=== PATIENT | female | born 1970 | race Caucasian/White ===

== ENCOUNTER 2022-01-11 14:42 | Emergency (ER) | payer OTHER ==
--- NOTE | 2022-01-11 15:23 | ER ---
Nurse's Notes [facility] Name: Maggy Baires Age: 52 yrs Sex: Female : 1970 Arrival Date: 01/11/2022 Time: 14:44 Bed 18 Private MD: Nikky Bradford Diagnosis: Hymenoptera Envenomation Presentation: 01/11 15:02 Chief complaint: Patient states: was mowing the grass and was stung by 'numerous' bees; vg1 LEVI legs/arms, ABD, back and face. Denies difficulty breathing or NV. Coronavirus screen: Vaccine status: Patient reports receiving the 2nd dose of the covid vaccine. Client denies travel out of the [place] in the last 14 days. Ebola Screen: Patient denies exposure to infectious person. Patient denies travel to an Ebola-affected area in the 21 days before illness onset. Onset: The symptoms/episode began/occurred today. Anaphylaxis evaluation, no signs or symptoms of anaphylaxis were noted. Initial Sepsis Screen: Does the patient meet any 2 criteria? No. Patient's initial sepsis screen is negative. Does the patient have a suspected source of infection? No. Patient's initial sepsis screen is negative. Risk Assessment: Do you want to hurt yourself or someone else? Patient reports no desire to harm self or others. Onset of symptoms was January 11, 2022. 15:02 Method Of Arrival: Ambulatory vg1 15:02 Acuity: DEE 3 vg1 Triage Assessment: 15:04 General: Appears uncomfortable, Behavior is calm, cooperative. Pain: Complains of pain vg1 in face, abdomen, right arm, left arm, right leg and left leg Pain currently is 6 out of 10 on a pain scale. Respiratory: Airway is patent Respiratory effort is even, unlabored. 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 - Social history:: Smoking status: Patient denies any tobacco usage or history of. Screenin:14 Abuse screen: Denies threats or abuse. Nutritional screening: No deficits noted. tw2 Tuberculosis screening: No symptoms or risk factors identified. Fall Risk None identified. Assessment: 15:14 Reassessment: provider at bedside at this time. tw2 15:42 Reassessment: Patient appears in no apparent distress at this time. No changes from tw2 previously documented assessment. Patient and/or family updated on plan of care and expected duration. Pain level reassessed. Patient is alert, oriented x 3, equal unlabored respirations, skin warm/dry/pink. 15:43 Respiratory: na. tw2 Vital Signs: 15:02 BP 147 / 86; Pulse 90; Resp 16; Temp 99.0(TE); Pulse Ox 97% on R/A; Weight 92.08 kg; vg1 Height 5 ft. 10 in. (177.80 cm); Pain 5/10; 15:02 Body Mass Index 29.13 (92.08 kg, 177.80 cm) vg1 ED Course: 14:44 Patient arrived in ED. mr 14:45 Nikky Bradford is Private Physician. mr 14:45 [facility] [place] 14:45 Karey Norris is Attending Physician. [place] 15:04 Triage completed. vg1 15:04 Arm band placed on. vg1 15:07 Bed in low position. Call light in reach. Pulse ox on. NIBP on. tw2 15:14 Kareen Castro, RN is Primary Nurse. tw2 15:42 No provider procedures requiring assistance completed. Patient did not have IV access tw2 during this emergency room visit. Administered Medications: 15:26 Drug: Decadron (dexamethasone) 10 mg Route: IM; Site: right deltoid; tw2 15:42 Follow up: Response: No adverse reaction tw2 Medication: 15:15 VIS not applicable for this client. tw2 Outcome: 15:22 Discharge ordered by . [place] 15:42 Discharged to home ambulatory. tw2 15:42 Condition: stable 15:42 Discharge instructions given to patient, Instructed on discharge instructions, follow up and referral plans. medication usage, Demonstrated understanding of instructions, follow-up care, medications, Prescriptions given X 2. 15:43 Patient left the ED. tw2 Signatures: Paulo Pool PA PA jmm Rivera, Gia mr Kareen Castro, RN RN tw2 Kourtney Martínez RN RN vg1
--- NOTE | 2022-01-11 15:23 | EDPHYS ---
Physician Documentation [facility] Name: Maggy Baires Age: 52 yrs Sex: Female : 1970 Arrival Date: 01/11/2022 Time: 14:44 Bed 18 Private MD: Nikky Bradford ED Physician Karey Norris HPI: 01/11 15:18 This 52 yrs old Female presents to ER via Ambulatory with complaints of Bee Sting. jmm 15:18 Onset: The symptoms/episode began/occurred acutely, just prior to arrival. This is a 52 jmm year old female with a history of anxiety that presents to [facility] ED with with multiple bee stings and concerns a bee may be in her ear. Patient states she disturbed a bee nest while mowing her lawn Denies shortness of breath, vomiting, swelling sensation to her throat. . 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 - Social history:: Smoking status: Patient denies any tobacco usage or history of. ROS: 15:18 Constitutional: Negative for fever, chills, and weight loss, Cardiovascular: Negative jmm for chest pain, palpitations, and edema, Respiratory: Negative for shortness of breath, cough, wheezing, and pleuritic chest pain. 15:18 Skin: Positive for erythema. 15:18 All other systems are negative. Exam: 15:18 Constitutional: This is a well developed, well nourished patient who is awake, alert, jmm and in no acute distress. Head/Face: atraumatic. Eyes: EOMI, no conjunctival erythema appreciated ENT: Moist Mucus Membranes Neck: Trachea midline, Supple Chest/axilla: Normal chest wall appearance and motion. Cardiovascular: Regular rate and rhythm. No edema appreciated Respiratory: Normal respirations, no respiratory distress appreciated Abdomen/GI: Non distended Back: Normal ROM 15:18 Skin: erythema noted to the face, neck. . 15:18 Neuro: Orientation: is normal, Mentation: is normal, Memory: is normal. 15:18 Psych: Behavior/mood is pleasant, cooperative. Vital Signs: 15:02 BP 147 / 86; Pulse 90; Resp 16; Temp 99.0(TE); Pulse Ox 97% on R/A; Weight 92.08 kg; vg1 Height 5 ft. 10 in. (177.80 cm); Pain 5/10; 15:02 Body Mass Index 29.13 (92.08 kg, 177.80 cm) vg1 MDM: 15:17 Patient medically screened. [facility] 15:20 Data reviewed: vital signs, nurses notes. Counseling: I had a detailed discussion with [facility] the patient and/or guardian regarding: the historical points, exam findings, and any diagnostic results supporting the discharge/admit diagnosis, the need for outpatient follow up, to return to the emergency department if symptoms worsen or persist or if there are any questions or concerns that arise at home. ED course: Patient is alert and non toxic in appearance in the ED. No signs of resp distress. No pharyngeal edema appreciated. . Administered Medications: 15:26 Drug: Decadron (dexamethasone) 10 mg Route: IM; Site: right deltoid; tw2 15:42 Follow up: Response: No adverse reaction tw2 Disposition: 01/12 07:45 STAFF ATTESTATION STATEMENT I was immediately available on-site in the Emergency sd2 Department for consultation in the care of the patient. Karey Norris MD. Disposition Summary: 01/11/22 15:22 Discharge Ordered Location: Home [facility] Condition: Stable [facility] Diagnosis - Hymenoptera Envenomation [facility] Followup: [facility] - With: Private Physician - When: 2 - 3 days - Reason: Recheck today's complaints, Continuance of care, Re-evaluation by your physician Discharge Instructions: - Discharge Summary Sheet [facility] - Bee, Wasp, or Hornet Sting, Adult [facility] Forms: - Medication Reconciliation Form [facility] - Thank You Letter [facility] - Antibiotic Education [facility] - Prescription Opioid Use [facility] Prescriptions: - Doxycycline Hyclate 100 mg Oral Tablet - take 1 tablet by ORAL route every 12 hours; 20 tablet; Refills: 0, Product [facility] Selection Permitted - Medrol (Joaquin) 4 mg Oral Tablets, Dose Pack - take 1 tablet by ORAL route as directed - follow package instructions; 1 jesse packet; Refills: 0, Product Selection Permitted Signatures: Paulo Pool PA PA jmm Wise, Tara, RN RN tw2 Kourtney Martínez RN RN vg1 Karey Norris2
[2022-01-11] MEDS ORDERED: dexAMETHasone 10 MG/ML VIAL ONE (15:30)
[2022-01-11 16:01] VITALS: BP 147/86; TEMP 99; O2SAT 97
== END 2022-01-11 15:43 | disposition home or self-care (01) ==
LOC: ER 14:42
DX: T63.441A Toxic effect of venom of bees, accidental (unintentional), initial encounter (principal); F41.9 Anxiety disorder, unspecified; F32.A Depression, unspecified; Z88.5 Allergy status to narcotic agent
CPT/HCPCS: 96372; 99283; J1100

== ENCOUNTER 2024-08-26 12:39 | Inpatient (IN) | payer OTHER ==
--- NOTE | 2024-08-26 13:32 | RAD REPORT ---
EXAM: Chest Single View HISTORY: 54 years Female CHEST PAIN COMPARISON: None. FINDINGS: LUNGS/PLEURA: The lungs are clear. No pleural effusions or pneumothorax. No pulmonary edema. CARDIAC/MEDIASTINUM: The cardiac silhouette is within normal limits. UPPER ABDOMEN: No significant abnormality. BONES: No acute abnormality. LINES/TUBES/OTHER: N/A IMPRESSION: No evidence of acute cardiopulmonary disease.
[2024-08-26] MEDS ORDERED: ASPIRIN 81 MG CHEWABLE TABLET ONE (15:01)
[2024-08-26 15:50] LABS: ALT/SGPT 29 U/L (13-56); AST/SGOT 16 U/L (15-37); Albumin 3.6 g/dL (3.4-5.0); Albumin/Globulin Ratio 1.1 (1.1-1.8); Alkaline Phosphatase 78 U/L (45-117); Anion Gap 9.6 mEq/L (5.0-15.0); BUN Blood Urea Nitrogen 11 mg/dL (7-18); Bicarbonate 28 mEq/L (21-32); Bilirubin Total 0.4 mg/dL (0.2-1.0); Globulin 3.3 g/dL (2.3-3.5); Glomerular Filtration Rate 95 ml/min (=/>90); Glucose Level 111 mg/dL (74-106); NT PRO-BNP 85 pg/mL (<125); Potassium 3.6 mEq/L (3.5-5.1); Protein, Total 6.9 g/dL (6.4-8.2); Sodium Level 140 mEq/L (136-145)
[2024-08-26 15:51] LABS: Bilirubin Direct < 0.2 mg/dL (0-0.2); Bilirubin Indirect, Calculated 0.2 mg/dL (0.2-0.8); Troponin High Sensitivity < 3.0 pg/mL (<58.9)
--- NOTE | 2024-08-26 16:02 | EDPHYS ---
Physician Documentation 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 Flu vaccine is not up to date. - Infectious Disease History:: Denies. - Social history:: Smoking status: Patient denies any tobacco usage or history of. Vital Signs: 12:57 BP 117 / 74; Pulse 80; Resp 17; Temp 98.5; Pulse Ox 97% on R/A; Weight 106.59 kg; ap3 Height 2 ft. 10 in. ; Pain 6/10; 15:00 BP 116 / 68; Pulse 69; Resp 18; Pulse Ox 97% ; me1 16:00 BP 112 / 64; Pulse 71; Resp 17; Pulse Ox 97% ; me1 17:00 BP 114 / 71; Pulse 62; Resp 16; Pulse Ox 99% ; me1 18:00 BP 118 / 70; Pulse 64; Resp 16; Pulse Ox 98% ; me1 03 03:00 BP 111 / 64; Pulse 64; Resp 18; Pulse Ox 99% on 1 lpm NC; ay 03:57 BP 105 / 59; Pulse 71; Resp 19; Pulse Ox 99% on 1 lpm NC; ay 08/26 12:57 Body Mass Index 142.93 (106.59 kg, 86.36 cm) ap3 03 12:57 Pain Scale: Adult ap3 MDM: 08/26 13:01 Medical Screening Exam initiated [facility] 08/26 13:02 Order name: Basic Metabolic Panel; Complete Time: 16:00 1 08/26 13:02 Order name: CBC with Diff; Complete Time: 16:20 gb1 08/26 13:02 Order name: LFT's; Complete Time: 16:00 [facility] 08/26 13:02 Order name: NT PRO-BNP; Complete Time: 16:00 gb1 08/26 13:02 Order name: PT-INR; Complete Time: 16:20 gb1 08/26 13:02 Order name: Troponin HS; Complete Time: 16:00 gb1 08/26 22:00 Order name: Lipid Profile EDMS 08/26 22:00 Order name: Lipid Profile EDMS 08/26 22:00 Order name: Troponin High Sensitivity EDMS 08/26 22:00 Order name: Troponin High Sensitivity EDMS 08/26 22:00 Order name: Troponin High Sensitivity EDMS 08/26 22:00 Order name: Troponin High Sensitivity EDMS 08/26 22:00 Order name: Troponin High Sensitivity EDMS 08/26 22:03 Order name: NT PRO-BNP EDMS 08/26 13:02 Order name: XRAY Chest (1 view); Complete Time: 13:33 gb1 08/26 22:00 Order name: Echo with Doppler EDMS 08/26 13:02 Order name: EKG; Complete Time: 13:02 gb1 08/26 22:00 Order name: CONS Physician Consult EDMS 08/26 22:00 Order name: EKG Electrocardiogram EDMS 08/26 22:00 Order name: EKG Electrocardiogram EDMS 08/26 22:00 Order name: EKG Electrocardiogram EDMS 08/26 13:02 Order name: Cardiac monitoring; Complete Time: 03:23 gb1 08/26 13:02 Order name: EKG - Nurse/Tech; Complete Time: 13:13 gb1 08/26 13:02 Order name: IV Saline Lock; Complete Time: 15:27 gb1 08/26 13:02 Order name: Labs collected and sent; Complete Time: 15:03 gb1 08/26 13:02 Order name: O2 Per Protocol; Complete Time: 15:00 gb1 08/26 13:02 Order name: O2 Sat Monitoring; Complete Time: 15:00 gb1 08/26 15:42 Order name: Labs - recollect needed: green and blue; Complete Time: 16:07 bc6 Administered Medications: 15:03 Drug: Aspirin PO Chewable Tablet 324 mg PO once; 81 mg tablets x 4 Route: PO; me1 15:16 Follow up: Response: No adverse reaction me1 08/27 02:40 Drug: NS 0.9% IV 1000 ml IV at 1000 ml once; to be given as a bolus over 60 minutes ay Route: IV; Rate: 1000 ml; Site: left hand; 04:29 Follow up: IV Status: Completed infusion ay Disposition Summary: 08/26/24 16:02 Hospitalization Ordered Notes: Hospitalization Status: Inpatient Admission gb1 Location: Telemetry/MedSur (Inpatient) gb1 Condition: Stable gb1 Problem: an acute exacerbation gb1 Symptoms: have improved gb1 Bed/Room Type: Standard gb1 Provider: June Villa(08/26/24 16:21) gb1 Room Assignment: [facility](08/26/24 22:43) vk Diagnosis - Chest pain, unspecified gb1 Forms: - Medication Reconciliation Form gb1 - SBAR form gb1 - Leadership Thank You Letter gb1 Signatures: Dispatcher [employer] Veronica Gomez, RN RN ap3 Rita Srivastava bc6 Deonna Bear RN RN me1 Ashlie Clement MD MD gb1 Sharon Mayes Awudu, RN RN ay Corrections: (The following items were deleted from the chart) 08/26 16:21 16:02 Dileep Ruiz gb1 gb1 22:43 16:02 gb1 vk
--- NOTE | 2024-08-26 16:02 | ER ---
Nurse's Notes [facility] Name: Maggy Baires Age: 54 yrs Sex: Female : 1970 Arrival Date: 08/26/2024 Time: 12:39 Bed 17 Private MD: Diagnosis: Chest pain, unspecified Presentation: 08/26 12:57 Chief complaint: Patient states: she has been having chest pain since approx 0800 this ap3 morning. 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 patient currently rates her pain as a 6/10 on the pain scale. Coronavirus screen: At this time, the client does not indicate any symptoms associated with coronavirus-19. Ebola Screen: No symptoms or risks identified at this time. Initial Sepsis Screen: Does the patient meet any 2 criteria? No. Patient's initial sepsis screen is negative. Does the patient have a suspected source of infection? No. Patient's initial sepsis screen is negative. Risk Assessment: Do you want to hurt yourself or someone else? Patient reports no desire to harm self or others. Onset of symptoms was August 26, 2024 at 08:00. 12:57 Method Of Arrival: Ambulatory ap3 12:57 Acuity: DEE 2 ap3 Triage Assessment: 12:59 General: Appears in no apparent distress. Behavior is calm, cooperative, appropriate ap3 for age. Pain: Complains of pain in chest Pain currently is 6 out of 10 on a pain scale. Neuro: Level of Consciousness is awake, alert, obeys commands, Oriented to person, place, time, situation, Appropriate for age. Cardiovascular: Reports chest pain. Respiratory: Airway is patent Respiratory effort is even, unlabored, Respiratory pattern is regular, symmetrical. 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 Flu vaccine is not up to date. - Infectious Disease History:: Denies. - Social history:: Smoking status: Patient denies any tobacco usage or history of. Screenin:59 [facility] ED Fall Risk Assessment (Adult) History of falling in the last 3 months, ap3 including since admission No falls in past 3 months (0 pts) Confusion or Disorientation No (0 pts) Intoxicated or Sedated No (0 pts) Impaired Gait No (0 pts) Mobility Assist Device Used No (0 pt) Altered Elimination No (0 pt) Score/Fall Risk Level 0 - 2 = Low Risk Oriented to surroundings, Maintained a safe environment, Educated pt \T\ family on fall prevention, incl call for assistance when getting out of bed, Assessed \T\ reinforced patient's understanding of fall precautions, Hourly rounding (assess needs \T\ fall precautionary measures) done, Used ambulatory aids as needed (educated on \T\ assisted with). Abuse screen: Denies threats or abuse. Nutritional screening: No deficits noted. Tuberculosis screening: No symptoms or risk factors identified. Assessment: 15:13 General: Appears in no apparent distress. uncomfortable, well groomed, well developed, me1 well nourished, Behavior is calm, cooperative, appropriate for age, Reports she has been having chest pain since approx 0800 this morning. 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 patient currently rates her pain as a 6/10 on the pain scale. Pain: Complains of pain in chest Pain radiates to left arm Pain currently is 6 out of 10 on a pain scale. Quality of pain is described as sharp, Pain began suddenly, Is continuous. Neuro: Level of Consciousness is awake, alert, obeys commands, Oriented to person, place, time, situation, Appropriate for age. Cardiovascular: Patient's skin is warm and dry. Respiratory: Airway is patent Respiratory effort is even, unlabored, Respiratory pattern is regular, symmetrical. GI: No signs and/or symptoms were reported involving the gastrointestinal system. : No signs and/or symptoms were reported regarding the genitourinary system. EENT: No signs and/or symptoms were reported regarding the EENT system. Derm: Skin is intact, is healthy with good turgor, Skin is pink, warm \T\ dry. Musculoskeletal: No signs and/or symptoms reported regarding the musculoskeletal system. 08/27 00:20 General: Appears in no apparent distress. uncomfortable, Behavior is calm, cooperative. ay Pain: Complains of pain in left arm and chest Pain currently is 6 out of 10 on a pain scale. Neuro: Level of Consciousness is awake, alert, obeys commands, Oriented to person, place, time, situation. Cardiovascular: Capillary refill < 3 seconds Rhythm is sinus rhythm. Respiratory: Airway is patent Respiratory effort is even, unlabored, Respiratory pattern is regular, symmetrical. GI: Patient currently denies nausea. : No signs and/or symptoms were reported regarding the genitourinary system. Vital Signs: 08/26 12:57 BP 117 / 74; Pulse 80; Resp 17; Temp 98.5; Pulse Ox 97% on R/A; Weight 106.59 kg; ap3 Height 2 ft. 10 in. ; Pain 6/10; 15:00 BP 116 / 68; Pulse 69; Resp 18; Pulse Ox 97% ; me1 16:00 BP 112 / 64; Pulse 71; Resp 17; Pulse Ox 97% ; me1 17:00 BP 114 / 71; Pulse 62; Resp 16; Pulse Ox 99% ; me1 18:00 BP 118 / 70; Pulse 64; Resp 16; Pulse Ox 98% ; me1 08 03:00 BP 111 / 64; Pulse 64; Resp 18; Pulse Ox 99% on 1 lpm NC; ay 03:57 BP 105 / 59; Pulse 71; Resp 19; Pulse Ox 99% on 1 lpm NC; ay 08/26 12:57 Body Mass Index 142.93 (106.59 kg, 86.36 cm) ap3 03 12:57 Pain Scale: Adult ap3 ED Course: 08/26 12:41 Patient arrived in ED. mr 12:56 EKG done, by ED staff. ap3 12:58 Triage completed. ap3 12:59 Arm band placed on right wrist. ap3 13:00 Patient maintains SpO2 saturation greater than 95% on room air. ap3 13:01 Ashlie Clement MD is Attending Physician. gb1 13:26 XRAY Chest (1 view) In Process Unspecified. EDMS 14:33 Patient placed in an exam room, on a stretcher. ll1 14:59 Deonna Bear, RN is Primary Nurse. me1 15:13 No provider procedures requiring assistance completed. me1 15:13 Patient has correct armband on for positive identification. Bed in low position. Call me1 light in reach. Side rails up X 1. Provided Education on: POC. Verbalized understanding.. Client placed on continuous cardiac and pulse oximetry monitoring. NIBP monitoring applied. town marshal on. Pulse ox on. NIBP on. 15:18 Missed attempt(s): 22 gauge in right forearm. em1 15:18 Missed attempt(s): 22 gauge in right forearm. Bleeding controlled, band aid applied, em1 catheter tip intact. 15:26 Initial lab(s) drawn, by me, sent to lab. Inserted saline lock: 20 gauge in left wrist, zm using aseptic technique. Blood collected. Flushed with 10 mL NS. 15:27 Basic Metabolic Panel Sent. zm 15:27 CBC with Diff Sent. zm 15:27 LFT's Sent. zm 15:27 NT PRO-BNP Sent. zm 15:27 PT-INR Sent. zm 15:27 Troponin HS Sent. 16:01 Dileep Ruiz is Hospitalizing Provider. 1 16:21 Hospitalizing Provider role handed off by Dileep Ruiz [facility] 16:21 June Villa MD is Hospitalizing Provider. [facility] 08/27 04:30 Patient admitted, IV remains in place. ay Administered Medications: 08/26 15:03 Drug: Aspirin PO Chewable Tablet 324 mg PO once; 81 mg tablets x 4 Route: PO; me1 15:16 Follow up: Response: No adverse reaction nc1 08/27 02:40 Drug: NS 0.9% IV 1000 ml IV at 1000 ml once; to be given as a bolus over 60 minutes ay Route: IV; Rate: 1000 ml; Site: left hand; 04:29 Follow up: IV Status: Completed infusion ay Medication: 08/26 15:13 VIS not applicable for this client. me1 Outcome: 16:02 Decision to Hospitalize by Provider. 1 08/27 04:30 Admitted to Med/surg accompanied by nurse, chas Condition: stable Instructed on the need for admit, 04:30 Patient left the ED. ay Signatures: Dispatcher [employer] EDTX AdyGia, Joshua Lewis Amanuel Wade em1 Veronica Jaime RN RN [id number] Silvano Quintero RN RN ll1 Svetlana Jeter Michelle, RN RN me1 Ashlie Clement MD MD gb1 Keshia Kaur RN RN ay Corrections: (The following items were deleted from the chart) 08/26 15:10 12:57 Chief complaint: Patient states: she has been having chest pain since approx 0800 me1 this morning. 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 patient currently rates her pain as a 6/10 on the pain scale ap3
[2024-08-26 16:13] LABS: Absolute Basophils 0.1 K/uL (0-0.5); Absolute Eosinophils 0.2 K/uL (0-0.5); Absolute Lymphocytes (CBC) 2.9 K/uL (0.7-4.9); Absolute Monocytes 0.3 K/uL (0.1-1.3); Absolute Neutrophil 3.7 K/uL (1.8-8.0); Basophils % 1.1 % (0-1.3); Hematocrit 37.1 % (36.0-45.0); Hemoglobin 12.7 g/dL (12.0-15.0); MCH 30.6 pg (27.0-35.0); MCHC 34.4 g/dL (32.0-36.0); MCV 89.1 fL (80-100); MPV 7.3 fL (7.6-11.3); Monocytes % 4.6 % (3.3-12.3); Neutrophils % 51.3 % (41.7-73.7); Nucleated Red Blood Cells % 0.2 % (0-0); Platelets 124 thou/uL (152-406); RBC Red Blood Cell Count 4.16 M/uL (3.86-4.86); Red Cell Distribution Width 13.3 % (12.1-15.2)
[2024-08-26 16:18] LABS: PT Prothrombin Time 10.5 SECONDS (10.0-13.0); Protime INR 0.92
[2024-08-26] MEDS ORDERED: MORPHINE 4 MG/ML SYR IV PRN (21:54)
--- NOTE | 2024-08-26 22:04 | P.HP ---
Patient History Date of Service: 08/27/24 History of Present Illness: 54-year-old female with a past medical history of obesity, hyperlipidemia, hypertension, borderline diabetes presenting with chest pain. She states she has gained about 45 pounds over the last few months. In addition she has had increasing shortness of breath. Furthermore she endorses radiation to the arm and left shoulder. She states her mother had a heart attack in her 60s. Her father had a stroke. She denies tobacco use, alcohol use, or any illicit drug use. Allergies codeine [Codeine] Adverse Reaction (Verified 08/11/12 12:46) Nausea/Vomiting Review of Systems General: Unremarkable Eyes: Unremarkable ENT: Unremarkable Respiratory: SOB with Excertion Cardiovascular: Chest Pain Gastrointestinal: Unremarkable Genitourinary: Unremarkable Musculoskeletal: Unremarkable Integumentary: Unremarkable Neurological: Unremarkable Lymphatics: Unremarkable Physical Examination - Physical Exam General: Alert, Obese HEENT: Normocephalic Respiratory: Clear to auscultation bilaterally, Normal air movement Cardiovascular: No edema, Normal pulses Capillary refill: <2 Seconds Gastrointestinal: Normal bowel sounds Musculoskeletal: No clubbing Integumentary: No rashes Neurological: Normal speech Lymphatics: No axilla or inguinal lymphadenopathy - Studies Laboratory Data (last 24 hrs) 08/26/24 08/26/24 08/26/24 15:55 15:55 15:20 WBC 7.20 Hgb 12.7 Hct 37.1 Plt Count 124 L PT 10.5 INR 0.92 Sodium 140 Potassium 3.6 BUN 11 Creatinine 0.75 Glucose 111 H Total Bilirubin 0.4 AST 16 ALT 29 Alkaline Phosphatase 78 Assessment and Plan - Plan Chest pain Shortness of breath Obesity Hyperlipidemia Prediabetes Essential hypertension Thrombocytopenia Trend troponin, EKG reviewed, echo pending Received aspirin in the ED, start statin, consult cardiology Lipid panel pending Resume home meds once obtained by pharmacy Chest x-ray without acute abnormality As needed nitroglycerin, morphine as needed DVT prophylaxis with SCDs - Advance Directives Does patient have a Living Will: No Does patient have a Durable POA for Healthcare: No
[2024-08-26] MEDS: Ringers Lactate 500 ML IV ONE (23:09)
[2024-08-27] MEDS: Ringers Lactate 500 ML IV ONE (00:10)
[2024-08-27] MEDS ORDERED: NA CHLORIDE 0.9% 1,000 ML ONE (02:10)
--- NOTE | 2024-08-27 02:30 | P.PN ---
Date of Service: 08/27/24 Called by nursing staff for low blood pressure Give 1 L lactated Ringer's Monitor pressure
[2024-08-27] MEDS: ENOXAPARIN 40 MG/0.4 ML SQ SCH (08:08)
[2024-08-27] MEDS: ASPIRIN EC 81 MG TAB PO SCH (08:08)
[2024-08-27] MEDS ORDERED: ATORVASTATIN 40 MG TAB PO SCH (09:00)
[2024-08-27] MEDS: LEVOTHYROXINE SOD 0.088 MG TAB PO SCH (09:00)
[2024-08-27] MEDS: ALPRAZOLAM 1 MG PO SCH (09:00)
[2024-08-27] MEDS: HOME MED 1 EA UNK (Quetiapine Fumarate [Seroquel] 300 MG Tablet) PO SCH (09:00)
[2024-08-27] MEDS: DOCUSATE NA 100 MG CAP PO SCH (09:16)
[2024-08-27] MEDS: MAGNESIUM HYDROXIDE 8% 30 ML PO ONE (09:16)
[2024-08-27 13:31] VITALS: BMI 33.5
[2024-08-27] MEDS: PNEUMOCOCCAL VACCINE 0.5 ML IMVAC ONE (13:41)
[2024-08-27] MEDS: FLU (Fluarix Triv) TS24-25(6MOS UP)/PF 45 MCG/0.5 ML Syringe IM ONE (13:43)
--- NOTE | 2024-08-27 13:56 | P.PN ---
Subjective Date of Service: 08/27/24 Patient reports intermittent left-sided chest pain. She states she has been wearing a heart monitor over the past couple of weeks and she was sent to the ER by Dr. Rao for evaluation for her chest pain. She reports associated shortness of breath, denies any palpitation. Physical Examination - Vital Signs Temperature: 97.9 F Blood Pressure: 113/60 Pulse: 68 Respirations: 12 Pulse Ox (%): 95 - Studies Laboratory Data (last 24 hrs) 08/26/24 08/26/24 08/26/24 15:55 15:55 15:20 WBC 7.20 Hgb 12.7 Hct 37.1 Plt Count 124 L PT 10.5 INR 0.92 Sodium 140 Potassium 3.6 BUN 11 Creatinine 0.75 Glucose 111 H Total Bilirubin 0.4 AST 16 ALT 29 Alkaline Phosphatase 78 Assessment And Plan - Plan Physical examination General: Alert and oriented x3, NAD, HEENT: Conjunctiva not pale, anicteric sclera Neck: Supple, no elevated JVD Heart: Heart sounds 1 and 2 normal, regular rhythm, normal rate, no pedal edema Lungs: Clear to auscultation bilaterally, adequate breath sounds bilaterally, no rhonchi or crackles. Abdomen: Soft, nondistended, nontender, normal bowel sounds. Extremities: No tenderness, no deformity Skin: Normal skin turgor, no rash, no nodules or ulcers. Neuro: No focal motor deficit. Normal speech. Psychiatry: Normal mood, no agitation. Diagnosis Chest pain Obesity Hyperlipidemia Prediabetes Essential hypertension Thrombocytopenia Plan Chest pain Troponin trended negative. ACS ruled out. Aspirin, Lipitor Cardiology consulted, Dr. Rao to evaluate patient. Echocardiogram ordered. Continue telemetry. Prediabetes Obesity ADA diet. Hypothyroidism Continue home dose Synthroid. Hypotension Hold home antihypertensives. Patient given IV Ringer's lactate bolus. Monitor BP. Thrombocytopenia Unknown etiology. Monitor CBC. Continue aspirin for now. DVT prophylaxis: Lovenox Advanced directive: Full code
[2024-08-27] MEDS: ATORVASTATIN 40 MG TAB PO SCH (21:00)
[2024-08-27] MEDS: NITROGLYCERIN 0.4 MG/TAB SL PRN (22:49)
[2024-08-27] MEDS: ACETAMINOPHEN 325 MG TABLET PO PRN (23:05)
[2024-08-28 05:53] LABS: Absolute Eosinophils 0.2 K/uL (0-0.5); Absolute Lymphocytes (CBC) 2.1 K/uL (0.7-4.9); Absolute Monocytes 0.4 K/uL (0.1-1.3); Absolute Neutrophil 4.7 K/uL (1.8-8.0); Basophils % 0.4 % (0-1.3); Eosinophils % 2.9 % (0-4.4); Hematocrit 35.2 % (36.0-45.0); Hemoglobin 11.8 g/dL (12.0-15.0); MCH 30.3 pg (27.0-35.0); MCHC 33.6 g/dL (32.0-36.0); MCV 89.9 fL (80-100); MPV 6.8 fL (7.6-11.3); Monocytes % 5.5 % (3.3-12.3); Neutrophils % 63.2 % (41.7-73.7); Platelets 212 thou/uL (152-406); RBC Red Blood Cell Count 3.92 M/uL (3.86-4.86); Red Cell Distribution Width 13.2 % (12.1-15.2)
[2024-08-28] MEDS ORDERED: ALPRAZOLAM 1 MG TABLET PO PRN (10:03)
--- NOTE | 2024-08-28 14:59 | P.PN ---
Subjective Date of Service: 08/28/24 Patient reports mild lingering left-sided chest pain. Physical Examination - Vital Signs Temperature: 97.8 F Blood Pressure: 111/57 Pulse: 69 Respirations: 16 Pulse Ox (%): 96 Assessment And Plan - Plan Physical examination General: Alert and oriented x3, NAD, HEENT: Conjunctiva not pale, anicteric sclera Neck: Supple, no elevated JVD Heart: Heart sounds 1 and 2 normal, regular rhythm, normal rate, no pedal edema Lungs: Clear to auscultation bilaterally, adequate breath sounds bilaterally, no rhonchi or crackles. Abdomen: Soft, nondistended, nontender, normal bowel sounds. Extremities: No tenderness, no deformity Skin: Normal skin turgor, no rash, no nodules or ulcers. Neuro: No focal motor deficit. Normal speech. Psychiatry: Normal mood, no agitation. Diagnosis Chest pain Obesity Hyperlipidemia Prediabetes Essential hypertension Thrombocytopenia Plan Chest pain Troponin trended negative. ACS ruled out. Aspirin, Lipitor Cardiology consulted, Dr. Rao to evaluate patient. Echocardiogram ordered. Continue telemetry. Prediabetes Obesity ADA diet. Hypothyroidism Continue home dose Synthroid. Hypotension Hold home antihypertensives. Patient given IV Ringer's lactate bolus. Monitor BP. Thrombocytopenia Unknown etiology. Monitor CBC. Continue aspirin for now. 08/28 Patient with ongoing intermittent chest pain Troponin trended negative. Thrombocytopenia resolved. Continue aspirin and Lipitor Patient hydrated with IV Ringer's lactate for low BP readings. Echocardiogram is pending Cardiology to evaluate Continue telemetry. DVT prophylaxis: Lovenox Advanced directive: Full code
[2024-08-28] MEDS: QUETIAPINE 100MG TAB PO SCH (21:29)
[2024-08-28] MEDS: ALPRAZOLAM 1 MG TABLET PO ONE (21:40)
[2024-08-29 09:08] VITALS: O2SAT 95
[2024-08-29 09:12] VITALS: TEMP 97.6
[2024-08-29 12:32] VITALS: BP 136/81
--- NOTE | 2024-08-29 12:43 | P.CNS ---
Date of Consult: 08/29/24 Chief Complaint: chest pain History of Present Illness: Patient with PMH of HTN, HLD, presented with chest pain that has been going on for a while, got worse recently, sharp in nature, no radiation, reproducible on exam by palpation and percussion, denies other cardiac symptoms. Allergies codeine [Codeine] Adverse Reaction (Verified 08/11/12 12:46) Nausea/Vomiting Home medications list reviewed: Yes Home Medications: Alprazolam [Alprazolam ER] 1 mg PO TID 08/27/24 Atorvastatin Calcium [Lipitor] 40 mg PO DAILY 08/27/24 Levothyroxine [Synthroid*] 0.88 mg PO DAILY 08/27/24 Lisinopril/Hydrochlorothiazide [Lisinopril-Hctz 20-25 mg Tab] 20 - 25 mg PO DAILY 08/27/24 Quetiapine Fumarate [Seroquel] 300 mg PO DAILY 08/27/24 - Past Medical/Surgical History Diabetic: No - Social History Alcohol use: No CD- Drugs: No Caffeine use: No Place of Residence: Home Review of Systems 10-point ROS is otherwise unremarkable Physical Examination Temp Pulse Resp BP Pulse Ox 97.6 F 68 16 136/81 96 08/29/24 12:00 08/29/24 12:00 08/29/24 12:00 08/29/24 12:00 08/29/24 12:00 General: Alert, In no apparent distress HEENT: Atraumatic, PERRLA, Mucous membr. moist/pink, EOMI, Sclerae nonicteric Neck: Supple, 2+ carotid pulse no bruit, No LAD, Without JVD or thyroid abnormality Respiratory: Clear to auscultation bilaterally, Normal air movement Cardiovascular: Regular rate/rhythm, Normal S1 S2 Gastrointestinal: Normal bowel sounds, No tenderness Musculoskeletal: No tenderness Integumentary: No rashes Neurological: Normal gait, Normal speech, Normal tone, Normal affect Lymphatics: No axilla or inguinal lymphadenopathy - Problems (1) Chest pain Current Visit: Yes Status: Acute Plan: Non cardiac, EKG and cardiac enzymes are negative. agree with echo, if normal then outpatient follow up with cardiology for a stress test. continue ASA and lipitor
--- NOTE | 2024-08-29 13:26 | P.DS ---
Admission Date: 08/26/24 Discharge Date: 08/29/24 Disposition: ROUTINE DISCHARGE Discharge Condition: FAIR Reason for Admission: chest pain Brief History of Present Illness: 54-year-old female with a past medical history of obesity, hyperlipidemia, hypertension, borderline diabetes presenting with chest pain. She states she has gained about 45 pounds over the last few months. In addition she has had increasing shortness of breath. Furthermore she reported arm and left shoulder pain. She states her mother had a heart attack in her 60s. Her father had a stroke. She denies tobacco use, alcohol use, or any illicit drug use. Initial troponin negative, EKG did not show any acute changes. Patient was hospitalized for ACS rule out. Hospital Course: Diagnosis Chest pain Obesity Hyperlipidemia Prediabetes Essential hypertension Thrombocytopenia Patient admitted to the medical floor and the following medical problems addressed: Chest pain Troponin trended negative. ACS ruled out. Aspirin, Lipitor Cardiology consulted, patient evaluated by Dr. Rutherford who recommend outpatient stress test. ACS ruled out. Echocardiogram done was grossly normal with normal EF. Prediabetes Obesity ADA diet. Hypothyroidism Continued home dose Synthroid. Hypotension Hold home antihypertensives due to low BPs Patient given IV Ringer's lactate bolus. Thrombocytopenia Unknown etiology. Thrombocytopenia resolved No physical evidence of bleeding. Vital Signs/Physical Exam: Temp Pulse Resp BP Pulse Ox 97.6 F 68 16 136/81 96 08/29/24 12:00 08/29/24 12:00 08/29/24 12:00 08/29/24 12:00 08/29/24 12:00 General: Alert, In no apparent distress, Oriented x3 HEENT: Mucous membr. moist/pink, Sclerae nonicteric Neck: Supple, JVD not distended Respiratory: Clear to auscultation bilaterally, Normal air movement Cardiovascular: No edema, Regular rate/rhythm, Normal S1 S2 Gastrointestinal: Normal bowel sounds, Soft and benign, Non-distended Musculoskeletal: No swelling Integumentary: No rashes, No cyanosis Neurological: Normal strength at 5/5 x4 extr Laboratory Data at Discharge: WBC 7.50 thou/uL (4.3-10.9) 08/28/24 05:28 Hgb 11.8 g/dL (12.0-15.0) L 08/28/24 05:28 Hct 35.2 % (36.0-45.0) L 08/28/24 05:28 Plt Count 212 thou/uL (152-406) 08/28/24 05:28 PT 10.5 SECONDS (10.0-13.0) 08/26/24 15:55 INR 0.92 08/26/24 15:55 Sodium 140 mEq/L (136-145) 08/26/24 15:20 Potassium 3.6 mEq/L (3.5-5.1) 08/26/24 15:20 BUN 11 mg/dL (7-18) 08/26/24 15:20 Creatinine 0.75 mg/dL (0.55-1.02) 08/26/24 15:20 Glucose 111 mg/dL (74-106) H 08/26/24 15:20 Total Bilirubin 0.4 mg/dL (0.2-1.0) 08/26/24 15:20 AST 16 U/L (15-37) 08/26/24 15:20 ALT 29 U/L (13-56) 08/26/24 15:20 Alkaline Phosphatase 78 U/L (45-117) 08/26/24 15:20 Triglycerides 184 mg/dL (<150) H 08/27/24 02:35 Cholesterol 143 mg/dL (<200) 08/27/24 02:35 HDL Cholesterol 47 mg/dL (40-60) 08/27/24 02:35 Cholesterol/HDL Ratio 3.04 08/27/24 02:35 Home Medications: Alprazolam [Alprazolam ER] 1 mg PO TID 08/27/24 Atorvastatin Calcium [Lipitor] 40 mg PO DAILY 08/27/24 Levothyroxine [Synthroid*] 0.88 mg PO DAILY 08/27/24 Quetiapine Fumarate [Seroquel] 300 mg PO DAILY 08/27/24 Aspirin [Aspirin EC 81 MG] 81 mg PO DAILY #30 tab 08/29/24 New Medications: Aspirin [Aspirin EC 81 MG] 81 mg PO DAILY #30 tab Physician Discharge Instructions: PROBLEM: Chest pain GOAL: Clear understanding of disease process INSTRUCTIONS: Follow up with Dr Rao to arrange outpatient stress test and to get ECHO results Diet: AHA Activity: Ad mykel IMMUNIZATION Influenza Vaccine Indicated: No Influenza Vaccine Given: Date Given: Pneumonia Vaccine Indicated: No Pneumonia Vaccine Given: Yes Date Given: Your BP medications were held because your BP readings were low during the hospital stay. Please check your BP once in the morning and restart your antihypertensives if you are systolic blood pressure stays consistently above 140 for the next couple of days. Please follow-up with cardiology Dr. Rao/Dr. Rutherford for arrangement for outpatient stress test. Your echocardiogram result is pending and need to be followed by your PCP or Dr. Rutherford. Diet: AHA Activity: Ad mykel Followup: Stanley Figueroa MD [Primary Care Provider] - 1-2 Weeks Issa Rao MD [ACTIVE - CAN ADMIT] - 1 Week (stress test) Time spent managing pt's care (in minutes): 32
--- NOTE | 2024-08-29 13:44 | ECHO ---
HEIGHT: 5 ft 10 in WEIGHT: 234 lb 0 oz DATE OF STUDY: 08/29/[address]: Ollie Hernandez MD 2-DIMENSIONAL: YES M.MODE: YES DOPPLER: YES COLOR FLOW: YES TDS: PORTABLE: YES DEFINITY: BUBBLE STUDY: DIAGNOSIS: CHEST PAIN, CONCERN FOR NEW ONSET HEART FAILURE CARDIAC HISTORY: CATHERIZATION: NO SURGERY: NO PROSTHETIC VALVE: NO PACEMAKER: NO MEASUREMENTS (cm) DIASTOLIC (NORMALS) SYSTOLIC (NORMALS) IVSd 1.2 (0.6-1.2) LA Diam 2.7 (1.9-4.0) LVEF 55-60% LVIDd 5.0 (3.5-5.7) LVIDs 3.8 (2.0-3.5) %FS 25% LVPWd 1.2 (0.6-1.2) Ao Diam 2.7 (2.0-3.7) 2 DIMENSIONAL ASSESSMENT: RIGHT ATRIUM: NORMAL LEFT ATRIUM: NORMAL RIGHT VENTRICLE: NORMAL LEFT VENTRICLE: NORMAL TRICUSPID VALVE: NORMAL MITRAL VALVE: NORMAL PULMONIC VALVE: NORMAL AORTIC VALVE: NORMAL PERICARDIAL EFFUSION: NONE AORTIC ROOT: NORMAL LEFT VENTRICULAR WALL MOTION: NORMAL DOPPLER/COLOR FLOW: NORMAL COMMENTS: 1. NORMAL LEFT VENTRICULAR SYSTOLIC FUNCTION, EJECTION FRACTION 55-60%, NORMAL WALL MOTION 2. NORMAL DIASTOLIC FUNCTION TECHNOLOGIST: JOSE G CADET
--- NOTE | 2024-08-30 11:17 | EKG ---
Test Date: 2024-08-26 Test Time: 12:55:34 Strike Warfare/Missile Systems Officer: ALP MEASUREMENT RESULTS: Intervals: Rate: 76 VT: 196 QRSD: 92 QT: 390 QTc: 438 [place]: P: 63 VT: 196 QRS: 33 T: 22 INTERPRETIVE STATEMENTS: Normal sinus rhythm T wave abnormality, consider inferior ischemia Abnormal ECG No previous ECG available for comparison Electronically Signed On 08-30-24 11:04:27 CDT by Lawson Rutherford
== END 2024-08-29 15:02 | disposition home or self-care (01) | DRG 313 ==
LOC: ER 12:39 → ERHOLD 21:54 → 2ND 08-27 06:13
PROVIDERS: ADMIT Family Medicine; ATTEND Internal Medicine
DX: R07.9 Chest pain, unspecified (principal); Z68.45 Body mass index [BMI] 70 or greater, adult; E66.9 Obesity, unspecified; D69.6 Thrombocytopenia, unspecified; I95.9 Hypotension, unspecified; E03.9 Hypothyroidism, unspecified; E78.5 Hyperlipidemia, unspecified; I10 Essential (primary) hypertension; R73.03 Prediabetes; Z23 Encounter for immunization; Z88.5 Allergy status to narcotic agent; Z79.82 Long term (current) use of aspirin; Z90.49 Acquired absence of other specified parts of digestive tract; Z28.310 Unvaccinated for COVID-19; Z79.890 Hormone replacement therapy; Z79.899 Other long term (current) drug therapy; Z90.710 Acquired absence of both cervix and uterus
CPT/HCPCS: 36415; 71045; 80048; 80061; 80076; 83880; 84484; 85025; 85379; 85610; 90471; 90656; 90732; 93005; 93306; 94760; 96360; 96361; 99285; J1650; J7030; J7120

== ENCOUNTER 2024-10-27 12:25 | Day surgery (SDC) | payer OTHER ==
[2024-10-24 16:30] LABS: Absolute Eosinophils 0.2 K/uL (0-0.5); Absolute Monocytes 0.4 K/uL (0.1-1.3); Basophils % 0.4 % (0-1.3); Eosinophils % 3.9 % (0-4.4); Hematocrit 36.6 % (36.0-45.0); Hemoglobin 12.8 g/dL (12.0-15.0); Lymphocytes % 36.2 % (15.3-44.8); MCH 30.6 pg (27.0-35.0); MCV 87.5 fL (80-100); MPV 7.3 fL (7.6-11.3); Monocytes % 6.8 % (3.3-12.3); Neutrophils % 52.7 % (41.7-73.7); Nucleated Red Blood Cells % 0.1 % (0-0); Platelets 229 thou/uL (152-406); RBC Red Blood Cell Count 4.18 M/uL (3.86-4.86); Red Cell Distribution Width 13.1 % (12.1-15.2)
[2024-10-24 16:33] LABS: PT Prothrombin Time 9.9 SECONDS (10-13.0); PTT, Activated Partial Thromb 32.2 SECONDS (27.2-37.4); Protime INR 0.86
--- NOTE | 2024-10-27 11:52 | EKG ---
Test Date: 2024-10-24 Test Time: 15:29:48 Continuous Improvement Manager: SUMAN MEASUREMENT RESULTS: Intervals: Rate: 74 MN: 194 QRSD: 88 QT: 380 QTc: 421 [place]: P: 73 MN: 194 QRS: 35 T: 50 INTERPRETIVE STATEMENTS: Normal sinus rhythm Low voltage QRS Borderline ECG Compared to ECG 09/29/2024 14:45:05 No significant changes Electronically Signed On 10-27-24 11:46:01 CDT by Lawson Rutherford
[2024-10-27] MEDS ORDERED: NA CHLORIDE 0.9% 500 ML ONE (12:36)
[2024-10-27] MEDS ORDERED: FENTANYL CITR 100 MCG/2 ML IV ONE (14:26)
[2024-10-27] MEDS ORDERED: MIDAZOLAM HCL 2 MG/2 ML INJ IV ONE (14:26)
[2024-10-27] MEDS ORDERED: ATROPINE SULF 1 MG/10 ML SYR IV ONE (14:28)
[2024-10-27] MEDS ORDERED: LIDOCAINE 1% 20 ML MDV ONE (15:39)
[2024-10-27] MEDS ORDERED: HEPARIN 10,000 UNIT/10 ML VIAL IV ONE (15:39)
[2024-10-27] MEDS ORDERED: HEPA 1000U/500MLS 2,000 UNIT/1,000 ML BAG IV ONE (15:39)
[2024-10-27] MEDS ORDERED: VERAPAMIL HCL 10 MG/4 ML VIAL IV ONE (15:40)
[2024-10-27] MEDS ORDERED: HEPARIN 5000 UNIT/ML 1 ML VIAL ONE (15:41)
[2024-10-27 18:08] VITALS: BP 132/79; O2SAT 97
--- NOTE | 2024-11-02 20:23 | OP ---
Date of Procedure: 10/27/2024 Surgeon: KIM DC Procedures Performed: 1. Coronary angiogram. 2. Left heart catheterization. 3. Right heart catheterization. Indication: 1. Unstable angina. 2. Shortness of breath. Access: 1. Right radial artery 6-[place] closed with TR band. 2. Right IJ 7-[place] closed with manual pressure. Complications: None. Bleeding: Less than 50 mL. Total Sedation Time: 1 hour. Description Of Procedure: After risks, benefits, and alternatives were explained, the patient agreed to procedure and signed informed consent. The patient was brought into cardiac [facility], prepped and draped in the usual sterile fashion. Then, I accessed the right radial artery us ing pediatric micropuncture kit, ultrasound guidance, and placed a 6-[place] slender sheath and then I accessed right IJ using ultrasound guidance and micropuncture kit and placed a 7-[place] pinnacle she ath and then took a balloon-tipped 7-[place] swan catheter through the IJ access into the right atrium , right ventricle, pulmonary artery and wedge, obtained waveform and pressures, also obtained cardiac output by thermodilutional method and then removed the [place] and the IJ access and manual pressure wa s used for closure with good hemostasis. Then, I took 5-[place] Jamison 4.0 catheter into the aortic ro ot over a J-wire and across the aortic valve, measured the LVEDP. Pullback did not record any gradie nt, then engaged the left main, took standard views, and then in the RCA, took standard views and the n removed the catheter and the sheath, placed TR band with good hemostasis. Findings: 1. Coronary angiogram. a. Left main is normal. b. LAD is normal. Normal diagonal branches. c. Left circumflex is with mild luminal irregularities. d. RCA entirely normal with the exception distally there is 20% stenosis. PDA and PLB are normal . e. LVEDP is elevated at 18 mmHg. 2. Right heart cath numbers: RA pressure is 10, RV pressure is 28/6, mean of 11. PA pressure was 31 /14, mean of 22. Pulmonary wedge pressure was 12, and cardiac output was 7.34 L/minute. Conclusion: 1. Mild nonobstructive coronary artery disease. 2. Elevated filling pressures. Recommendation: Diuretics and low-sodium diet. SR/MODL Voice ID: [id number] Report ID: [id number]
== END 2024-10-27 18:20 | disposition home or self-care (01) ==
LOC: CCL 12:25
PROVIDERS: ATTEND Internal Medicine
DX: I25.110 Atherosclerotic heart disease of native coronary artery with unstable angina pectoris (principal); I10 Essential (primary) hypertension; Z88.0 Allergy status to penicillin; Z88.5 Allergy status to narcotic agent
CPT/HCPCS: 93005; 85025; 80048; 36415; 85610; 85730; 93460; 76937; C1893; Q9966; J1644; J2003; J2250; J3010; J7040; 99152; 99153; J0461